=== PATIENT | female | born 1995 | race Caucasian/White ===

== ENCOUNTER 2020-07-14 06:13 | Inpatient (IN) | payer BC ==
[~2020-07-14] VITALS: Ht 162.6 cm; Wt 83.6 kg
[2020-07-14] VITALS (56 sets, daily range): BP systolic 14–164; BP diastolic 50–81; PULSE 86–144; TEMP 97.8–98.8
--- NOTE | 2020-07-14 06:15 | NUR ---
Patient arrives ambulatory with spouse with complaints of contractions that started at 0145 and have worsened in intensity and frequency. Patient reports they are now every 4-5 minutes. Reports some "bloody show" but denies ROM. Reports normal movement. Changes into gown, EFM explained and placed. VS obtained. 0630- SVE by Cleo Rogers RN with old blood noted on exam glove. Patient repositioned WL. Assessment completed. Patient updated on plan of care.
[2020-07-14] MEDS ORDERED: PRENATAL (06:53)
--- NOTE | 2020-07-14 08:15 | NUR ---
Patient off EFM per request to ambulate in room.
[2020-07-14 08:30] LABS: BASO % 0.2 % (0.0-2.0); EOS # 0.1 (0.0-0.7); EOS % 0.3 % (0-4.0); GRAN # 13.4 (1.4-6.5); GRAN % 81.9 % (42.2-75.2); HEMOGLOBIN 13.3 g/dl (12.5-16.0); MEAN CELL VOLUME 91 fl (80.0-100.0); MEAN CORPUSCULAR HEMOGLOBIN 30 pg (27.0-31.0); MEAN CORPUSCULAR HGB CONC 33 g/dl (33.0-37.0); MEAN PLATELET VOLUME 12.9 fl (7.4-10.4); MONO # 0.7 (0.1-0.6); MONO % 4.3 % (1.7-9.3); PLATELET COUNT 187 K/mm3 (130-400); RED BLOOD COUNT 4.41 M/mm3 (4.10-5.30); REDCELL DISTRIBUTION WIDTH-CV 13.1 % (11.5-14.5)
--- NOTE | 2020-07-14 08:40 | NUR ---
Patient consents to COVID19 test. Swab collected per protocol and sent to lab.
--- NOTE | 2020-07-14 13:34 | NUR ---
1334- Prolonged FHR deceleration noted lasting approximately 6 minutes intermittently to 90 bpm. Patient repositioned RL, then LL. BP noted hypotensive, Ephedrine given at 1338. Patient repositioned knee chest position, SVE per Juana Jean RN / with increased bloody show noted. Patient repositioned LL and physician notified. See physician notification.
--- NOTE | 2020-07-14 16:11 | NUR ---
1540 SISTER SUPERIOR AT BEDSIDE AND EPIDURAL REPLACED AT THIS TIME. PATIENT TOLERTES WELL. SEE SISTER SUPERIOR NOTES PLEASE
--- NOTE | 2020-07-14 21:15 | NUR ---
2114 DR HARLEY TO ROOM TO CHECK ON PT. SVE DONE. DISCUSSED WITH PT FORCEP OR VACUUM DELIVERY. PT READIED FOR DELIVERY 2124 YESSICA DCD. ATTEMPT TO APPLY FORCEPS. [id number] VACUUM APPLIED AND USED DURING CONTRACTIONS WITH ONE POP OFF. 2204 DEL VIABLE MALE OVER 2 DEGREE LAC WITH 5/9/10 APGARS. IV CONTS TO INFUSE. EPID PUMP OFF.
[2020-07-15 00:10] VITALS: BP 104/62; PULSE 106; TEMP 98.1
--- NOTE | 2020-07-15 00:10 | NUR ---
0010 LEFT LEG REMAINS HEAVY AND UNMOBILE. CAN MOVE RIGHT LEG. PAD CHANGED. IV TO INT. MOTRIN 600MG PO FOR C/O PERINEAL PAIN. REGULAR DIET TAKEN. TRYING TO REST.
--- NOTE | 2020-07-15 00:30 | NUR ---
0030 EPID DCD. UNABLE TO MOVE LEFT LEG WELL. PERICARE DONE IN BED. STRAIGHT CATH WITH 900CC RETURNED. TO W/C AND TO 208. ORIENTED TO ROOM. PERCOCET X2 PO GIVEN FOR PERINEAL PAIN AND ICE PACK TO SWOLLEN LABIA.
[2020-07-15 04:00] VITALS: BP 103/64; PULSE 120; TEMP 98.6
[2020-07-15 07:22] VITALS: BP 104/64; PULSE 74; TEMP 97.6
[2020-07-15 07:39] LABS: HEMATOCRIT 33.3 % (37.0-47.0); HEMOGLOBIN 11.1 g/dl (12.5-16.0)
--- NOTE | 2020-07-15 10:47 | NUR ---
Initial visit; Parents thanked Orthophotography Technician for offering congratulations and God's blessings for the of their son. Orthophotography Technician thanked family for choosing [facility].
[2020-07-15 11:51] VITALS: BP 116/73; PULSE 81; TEMP 97.5
[2020-07-15 16:56] VITALS: BP 106/71; PULSE 85; TEMP 98.3
[2020-07-15] MEDS ORDERED: MOTRIN 800800 MG/TAB PO (19:58)
[2020-07-15 21:25] VITALS: BP 112/70; PULSE 106; TEMP 97.7
[2020-07-16 07:28] VITALS: BP 116/78; PULSE 76; TEMP 98.1
== END 2020-07-16 15:14 | disposition home or self-care (01) | DRG 807 ==
LOC: LDRO 06:13 → LDR 06:15 → OB 07-15 00:30
PROVIDERS: Obstetrics & Gynecology; ADMIT Obstetrics & Gynecology
PROC: 10D07Z6 Extraction of Products of Conception, Vacuum, Via Natural or Artificial Opening (ICD-10-PCS; principal; 2020-07-14)
PROC: 0KQM0ZZ Repair Perineum Muscle, Open Approach (ICD-10-PCS; 2020-07-14)
DX: O99.62 Diseases of the digestive system complicating childbirth (principal); Z37.0 Single live birth; K21.9 Gastro-esophageal reflux disease without esophagitis; O36.8330 Maternal care for abnormalities of the fetal heart rate or rhythm, third trimester, not applicable or unspecified; O70.1 Second degree perineal laceration during delivery; O32.2XX0 Maternal care for transverse and oblique lie, not applicable or unspecified; O99.810 Abnormal glucose complicating pregnancy; Z20.822 Contact with and (suspected) exposure to COVID-19; Z3A.39 39 weeks gestation of pregnancy; Z86.16 Personal history of COVID-19
CPT/HCPCS: J2590; J2791; J2795; J7120